=== PATIENT | male | born 1990 | race Caucasian/White ===

== ENCOUNTER 2021-01-24 17:06 | Emergency (ER) | payer MEDICAID ==
[~2021-01-24] VITALS: Ht 170.2 cm; Wt 90.9 kg
[2021-01-24 17:09] VITALS: BP 137/77
[2021-01-24] MEDS ORDERED: LIDOCAINE 1% 10 ML VIAL ID ONE (17:30)
[2021-01-24] MEDS ORDERED: IBUPROFEN 600 MG TABLET PO ONE (17:30)
[2021-01-24] MEDS ORDERED: ACETAMINOPHEN 500 MG TABLET PO ONE (17:30)
[2021-01-24] MEDS ORDERED: PERTUSS(ACELL),DIPH,TET VAC/PF 0.5 ML VIAL IM ONE (18:15)
[2021-01-24] MEDS ORDERED: CEPHALEXIN MONOHYDRATE 500 MG CAPSULE PO ONE (18:15)
[2021-01-24] MEDS ORDERED: DOXYCYCLINE HYCLATE 100 MG TABLET PO ONE (18:15)
== END 2021-01-24 18:51 | disposition home or self-care (01) ==
LOC: EMS 17:06
DX: S61.214A Laceration without foreign body of right ring finger without damage to nail, initial encounter (principal); S61.212A Laceration without foreign body of right middle finger without damage to nail, initial encounter; W19.XXXA Unspecified fall, initial encounter; Y93.89 Activity, other specified; Y92.89 Other specified places as the place of occurrence of the external cause; Y99.8 Other external cause status
CPT/HCPCS: 12001; 73130; 90471; 90715; 99284; J3490